=== PATIENT | female | born 1980 | race Two or more races ===

== ENCOUNTER 2017-04-18 00:35 | Emergency (ER) | payer SELFPAY ==
[2017-04-18 00:41] VITALS: RESP 20
--- NOTE | 2017-04-18 00:51 | C.PDOC ---
History Of Present Illness The patient presents to the ED for evaluation of a abscesses to her right hand and right great toe which developed over the past 4-5 days. Patient admits to injecting heroin to the area around her right great toe. Patient has been taking Amoxicillin that was given to her by her friend. She denies suicidal/ homicidal ideation and has no other complaints at this time. Time Seen by Provider: 04/18/17 00:50 Chief Complaint (Nursing): Abnormal Skin Integrity History Per: Patient History/Exam Limitations: no limitations Onset/Duration Of Symptoms: Days Current Symptoms Are (Timing): Still Present Location Of Injury: Right: Foot (abscess, cellulitis), Hand (abscess, cellulitis ) Quality Of Symptoms: Painful, Swollen, Draining Severity: Mild Pain Scale Rating Of: 4 Recent travel outside of the [place]: No Additional History Per: Patient Past Medical History Reviewed: Historical Data, Nursing Documentation, Vital Signs Vital Signs: Last Vital Signs Temp 97.9 F 04/18/17 00:37 Pulse 92 H 04/18/17 00:37 Resp 20 04/18/17 00:37 BP 128/79 04/18/17 00:37 Pulse Ox 96 04/18/17 01:49 - Medical History PMH: Anxiety Surgical History: No Surg Hx Family History: States: Unknown Family Hx - Social History Hx Alcohol Use: No Hx Substance Use: Yes - Immunization History Hx Tetanus Toxoid Vaccination: No Hx Influenza Vaccination: No Hx Pneumococcal Vaccination: No Review Of Systems Constitutional: Negative for: Fever, Chills ENT: Negative for: Throat Pain Cardiovascular: Negative for: Chest Pain, Palpitations Respiratory: Negative for: Cough, Shortness of Breath Gastrointestinal: Negative for: Nausea, Vomiting, Abdominal Pain, Diarrhea Musculoskeletal: Positive for: Hand Pain (right), Foot Pain (right) Skin: Positive for: Other (abscess to right foot and hand ). Negative for: Rash , Lesions, Jaundice, Bruising Neurological: Negative for: Weakness, Numbness Psych: Negative for: Suicidal ideation Physical Exam - Physical Exam Appears: Non-toxic, No Acute Distress Skin: Normal Color, Warm, Dry Head: Normacephalic Eye(s): bilateral: Normal Inspection Oral Mucosa: Moist Neck: Trachea Midline, Supple Chest: Symmetrical, No Deformity, No Tenderness Cardiovascular: Rhythm Regular, No Murmur Respiratory: No Rales, No Rhonchi, No Wheezing, Other (speaking in complete sentences ) Back: No CVA Tenderness Extremity: Normal ROM, Capillary Refill (less than 2 seconds ), Other (3x4cm area of abscess and cellulitis to dorsum of right hand. abscess and cellulitis to dorsum of right foot. visible track raymond ) Pulses: Left Radial: Normal, Right Radial: Normal, Left Dorsalis Pedis: Normal, Right Dorsalis Pedis: Normal Neurological/Psych: Oriented x3, Normal Speech, Normal Cognition ED Course And Treatment - Laboratory Results Result Diagrams: 04/18/17 01:33 04/18/17 01:33 O2 Sat by Pulse Oximetry: 96 (on RA ) Pulse Ox Interpretation: Normal Progress Note: Bloodwork, UA, CT Upper Extremity, CT Lower extremity ordered and reviewed. Vancomycin IVP and Zosyn IVP administered. 3 am pt does not want to be hospitalized and signed AMA form., Pt is aaox3 and competent and understands all the risks as I've explained at length including worsening condition, loss of fingers and hand, loss of toes and foot, permanent disability and . Encouraged to return. Prescriptions were given Against Medical Advice - AMA Patient Left Against Medical Advice: The patient declines admission to the hospital and wishes to leave the Emergency Department. This action is against my medical advice. This decision was made with informed refusal. The patient was told that admission to the hospital is necessary. Explanation of the reasons why were discussed. The risks of leaving were explained to the patient and include, but are not limited to, worsening of known or currently unknown conditions, permanent disability and from undiagnosed or untreated conditions. The patient has the capacity to make this informed decision and understands my explanation of the current medical problem and risks of leaving. The patient voluntarily accepts these risks and signed an AMA form documenting our conversation. The patient was given the opportunity to ask questions and reconsider. The patient was encouraged to return to the Emergency Department at any time for further care. Disposition Counseled Patient/Family Regarding: Studies Performed, Diagnosis, Need For Followup, Rx Given - Disposition Referrals: [facility] [Outside] [facility] [Outside] Disposition: AGAINST MEDICAL ADVICE Disposition Time: 00:51 Condition: GUARDED Prescriptions: Cephalexin [cephalexin] 500 mg PO QID #28 cap Sulfamethoxazole/Trimethoprim [Bactrim DS 800 mg-160 mg] 1 tab PO BID #14 tab Instructions: Abscess (ED), Cellulitis (DC) Forms: [employer] ([place]) - Clinical Impression Clinical Impression: Cellulitis and abscess of hand, Abscess of right foot - Scribe Statement The provider has reviewed the documentation as recorded by the Scribe (Mya Simon) Provider Attestation: All medical record entries made by the Scribe were at my direction and personally dictated by me. I have reviewed the chart and agree that the record accurately reflects my personal performance of the history, physical exam, medical decision making, and the department course for this patient. I have also personally directed, reviewed, and agree with the discharge instructions and disposition.
[2017-04-18] MEDS ORDERED: Piperacillin/Tazobact 3.375 GM in Sodium Chloride 100 ML IVPB STA (01:02)
[2017-04-18] MEDS ORDERED: Piperacillin/Tazobact 3.375 gm 100 ML IVPB ONE (01:14)
[2017-04-18 01:36] LABS: BASO % 0.6 % (0.0-2.0); EOS # 0.4 K/uL (0.0-0.7); EOS % 4.7 % (0.0-4.0); HEMATOCRIT 34.8 % (34.0-47.0); LYMPH # 2.7 K/uL (1.0-4.3); LYMPH % 33.3 % (20.0-40.0); MEAN CELL VOLUME 86.3 fL (81.0-99.0); MEAN CORPUSCULAR HEMOGLOBIN 30.4 pg (27.0-31.0); MEAN CORPUSCULAR HGB CONC 35.2 g/dL (33.0-37.0); MEAN PLATELET VOLUME 6.3 fL (7.2-11.7); MONO # 0.6 K/uL (0.0-0.8); MONO % 7.2 % (0.0-10.0); RED CELL DISTRIBUTION WIDTH 12.1 % (11.5-14.5)
[2017-04-18] MEDS ORDERED: Vancomycin 1 gm/NS 200 ml 1 GM/200 ML BAG IVPB STA (01:36)
[2017-04-18 01:48] LABS: VENOUS BLOOD GAS BASE EXCESS 6.6 mmol/L (0.0-2.0); VENOUS BLOOD GAS PCO2 50 mmHg (40-60); VENOUS BLOOD PH 7.42 (7.32-7.43)
[2017-04-18 01:48] LABS: ALB/GLOB RATIO 1.3 (1.0-2.1); ALKALINE PHOSPHATASE 70 U/L (38-126); ALT/SGPT 60 U/L (9-52); AST/SGOT 39 U/L (14-36); BILIRUBIN,TOTAL 0.4 mg/dL (0.2-1.3); BLOOD UREA NITROGEN 9 mg/dL (7-17); CALCIUM 8.2 mg/dl (8.6-10.4); CARBON DIOXIDE 31 mmol/L (22-30); CHLORIDE 98 mmol/L (98-107); GFR AFRICAN-AMERICAN > 60; GLUCOSE,RANDOM 127 mg/dL (65-105); POTASSIUM 3.3 mmol/L (3.6-5.2); SODIUM 136 mmol/L (132-148); TOTAL PROTEIN 6.7 g/dL (6.3-8.3)
[2017-04-18] MEDS ORDERED: Iodixanol 320 MG/ML 100 ML BOTTLE IV ONE (02:07)
[2017-04-18 02:15] LABS: RBC URINE < 1 /hpf (0-3); URINE BACTERIA RARE (<OCC); URINE BILIRUBIN NEGATIVE (NEGATIVE); URINE BLOOD NEGATIVE (NEGATIVE); URINE COLOR Yellow (YELLOW); URINE GLUCOSE (UA) NORMAL (Normal); URINE KETONE NEGATIVE (NEGATIVE); URINE LEUKOCYTE ESTERASE NEG Leu/uL (Negative); URINE PROTEIN NEGATIVE (NEGATIVE); WBC URINE 1 /hpf (0-5)
--- NOTE | 2017-04-18 03:31 | CT ---
EXAM: CT Right Upper Extremity Without Intravenous Contrast, Hand CLINICAL HISTORY: 36 years old, female; Pain and signs and symptoms; Mass or lump and swelling; Hand; Right; Additional info: Hand abscess. Hand w/iv TECHNIQUE: Axial computed tomography images of the right hand without intravenous contrast. All CT scans at this facility use one or more dose reduction techniques, viz.: automated exposure control; ma/kV adjustment per patient size (including targeted exams where dose is matched to indication; i.e. head); or iterative reconstruction technique. Coronal and sagittal reformatted images were created and reviewed. COMPARISON: No relevant prior studies available. FINDINGS: Bones/joints: No acute fracture. No dislocation. No definite cortical destruction. Soft tissues: Skin thickening. Marked soft tissue swelling along dorsum of hand. Amorphous peripherally enhancing fluid collection(s) along dorsum of hand, approximately 3.2 x 1.1 x 1.1 cm. IMPRESSION: 1. Findings compatible with cellulitis and abscess(es).
--- NOTE | 2017-04-18 03:34 | CT ---
EXAM: CT Right Lower Extremity With Intravenous Contrast, Foot CLINICAL HISTORY: 36 years old, female; Pain; Foot; Right; Additional info: Abscess doesum foot TECHNIQUE: Axial computed tomography images of the right foot with intravenous contrast. All CT scans at this facility use one or more dose reduction techniques, viz.: automated exposure control; ma/kV adjustment per patient size (including targeted exams where dose is matched to indication; i.e. head); or iterative reconstruction technique. Coronal and sagittal reformatted images were created and reviewed. CONTRAST: 100 mL of [id number] administered intravenously. COMPARISON: No relevant prior studies available. FINDINGS: Bones/joints: No acute fracture. No dislocation. No definite cortical destruction. Soft tissues: Skin thickening. Soft tissue swelling along dorsum of forefoot. 1.6 x 1.5 x 0.8 cm peripherally enhancing fluid collection along medial dorsum of forefoot, communicating with skin surface. IMPRESSION: 1. Findings compatible with cellulitis and abscess.
[2017-04-18 03:42] VITALS: BP 130/80; PULSE 90; TEMP 98; O2SAT 98
== END 2017-04-18 03:40 | disposition left against medical advice (07) ==
LOC: C.ER 00:35
DX: L02.511 Cutaneous abscess of right hand (principal); L02.611 Cutaneous abscess of right foot
CPT/HCPCS: 36415; 73200; 73701; 80053; 81001; 82803; 84703; 85025; 87040; 96365; 96366; 96367; 99284; J2543; J3370; J7050; Q9967

== ENCOUNTER 2017-11-06 11:53 | Observation (INO) | payer SELFPAY ==
[2017-11-06 12:07] VITALS: BMI 22.6
[2017-11-06] MEDS ORDERED: Sodium Chloride 0.9% 1,000 ML IV STA (12:29)
[2017-11-06] MEDS ORDERED: Piperacillin/Tazobact 3.375 gm 100 ML IV STA (12:33)
[2017-11-06] MEDS ORDERED: Vancomycin 1 GM 1 GM/250 ML BAG IV STA (12:33)
[2017-11-06 12:50] LABS: VENOUS BLOOD GAS BASE EXCESS 4.6 mmol/L (0.0-2.0); VENOUS BLOOD GAS PCO2 56 mmHg (40-60); VENOUS BLOOD GAS PO2 40 mm/Hg (30-55); VENOUS BLOOD PH 7.36 (7.32-7.43)
[2017-11-06 12:53] LABS: BASO % 0.6 % (0.0-2.0); EOS # 0.1 K/uL (0.0-0.7); EOS % 1.5 % (0.0-4.0); HEMOGLOBIN 12.3 g/dL (11.0-16.0); LYMPH # 2.2 K/uL (1.0-4.3); LYMPH % 26.9 % (20.0-40.0); MEAN CELL VOLUME 85.6 fL (81.0-99.0); MEAN CORPUSCULAR HEMOGLOBIN 29.8 pg (27.0-31.0); MEAN CORPUSCULAR HGB CONC 34.8 g/dL (33.0-37.0); MEAN PLATELET VOLUME 6.3 fL (7.2-11.7); MONO # 0.7 K/uL (0.0-0.8); MONO % 8.6 % (0.0-10.0); NEUT % 62.4 % (50.0-75.0); NRBC % 0.1 % (0.0-2.0); RBC 4.14 Mil/uL (3.80-5.20); RED CELL DISTRIBUTION WIDTH 12.4 % (11.5-14.5)
[2017-11-06] MEDS ORDERED: Vancomycin 1 gm/NS 200 ml 1 GM/200 ML BAG IVPB STA (12:57)
[2017-11-06] MEDS ORDERED: Sodium Chloride 0.9% 1,000 ML ONE (13:00)
[2017-11-06] MEDS ORDERED: Piperacillin/Tazobact 3.375 gm 100 ML IVPB ONE (13:00)
[2017-11-06 13:06] LABS: ALB/GLOB RATIO 1.3 (1.0-2.1); ALT/SGPT 50 U/L (9-52); AST/SGOT 39 U/L (14-36); BLOOD UREA NITROGEN 10 mg/dL (7-17); GFR AFRICAN-AMERICAN > 60; GFR NON-AFRICAN AMERICAN > 60
[2017-11-06 13:14] LABS: INR 1.1; PROTHROMBIN TIME 12.5 SECONDS (9.7-12.2)
--- NOTE | 2017-11-06 14:11 | C.PDOC ---
History Of Present Illness 37-year-old female, presents to the emergency department with complains of left breast infection x4 days. Patient admits being IVDA. Denies nausea/vomiting, fever, chills, chest pain, or any other associated symptoms. No other complaints at this time Time Seen by Provider: 11/06/17 12:15 Chief Complaint (Nursing): Abnormal Skin Integrity History Per: Patient History/Exam Limitations: no limitations Current Symptoms Are (Timing): Still Present Past Medical History Reviewed: Historical Data, Nursing Documentation, Vital Signs Vital Signs: Last Vital Signs Temp 98.6 F 11/06/17 12:01 Pulse 56 L 11/06/17 18:57 Resp 16 11/06/17 18:57 BP 94/61 L 11/06/17 18:57 Pulse Ox 100 11/06/17 18:57 - Medical History PMH: Anxiety Family History: States: No Known Family Hx - Social History Hx Alcohol Use: No Hx Substance Use: Yes - Immunization History Hx Tetanus Toxoid Vaccination: No Hx Influenza Vaccination: No Hx Pneumococcal Vaccination: No Review Of Systems Constitutional: Negative for: Fever, Chills Cardiovascular: Positive for: Other (breast pain). Negative for: Edema Respiratory: Negative for: Shortness of Breath Gastrointestinal: Negative for: Nausea, Vomiting Musculoskeletal: Negative for: Back Pain Skin: Negative for: Rash Neurological: Negative for: Weakness, Numbness, Headache, Dizziness Physical Exam - Physical Exam Appears: Non-toxic, No Acute Distress, Other (Drowsy, appears intoxicated. ) Skin: Normal Color, Warm, Dry, No Rash Head: Atraumatic Eye(s): bilateral: Normal Inspection Nose: Normal Oral Mucosa: Moist Lips: Normal Appearing Neck: Normal ROM Chest: Symmetrical, Other (Left breast, swelling, erythema, warmth. Inner part of breast with 3cm black ulceration (+)yellow, foul smelling discharge. ) Cardiovascular: Rhythm Regular, No Murmur Respiratory: Normal Breath Sounds, No Accessory Muscle Use Extremity: Normal ROM, No Deformity, No Swelling Neurological/Psych: Oriented x3, Normal Speech ED Course And Treatment - Laboratory Results Result Diagrams: 11/06/17 12:48 11/06/17 12:48 O2 Sat by Pulse Oximetry: 100 (RA) Pulse Ox Interpretation: Normal - Other Rad CXR X-Ray: Viewed By Me, Read By Radiologist Interpretation: Accession No. : [id number]. Patient Name / ID : JEREMI BRAVO / [id number]. Exam Date : 11/06/2017 17:51:41 ( Approved ). Study Comment : Sex / Age : F / 37Y. Creator : Kelsie Bull MD. Dictator : Kelsie Bull MD. Backup Administrator : Hotel Administrative Assistant : Kelsie Bull MD. Approver2 : Report Date : 11/06/2017 18:07:44. My Comment : . HISTORY: breast cellulitis. COMPARISON: No prior. FINDINGS: LUNGS: The lungs are well inflated and clear. PLEURA: No significant pleural effusion identified, no pneumothorax apparent. CARDIOVASCULAR: Normal. OSSEOUS STRUCTURES: No significant abnormalities. VISUALIZED UPPER ABDOMEN: Normal. OTHER FINDINGS: None. IMPRESSION: No active pulmonary disease. - CT Scan/US CT chest Other Rad Studies (CT/US): Read By Radiologist, Radiology Report Reviewed CT/US Interpretation: Accession No. : [id number]. Patient Name / ID : JEREMI BRAVO / [id number]. Exam Date : 11/06/2017 14:48:41 ( Approved ). Study Comment : Sex / Age : F / 37Y. Creator : Kelsie Bull MD. Dictator : Kelsie Bull MD. Backup Administrator : Hotel Administrative Assistant : Kelsie Bull MD. Approver2 : Report Date : 11/06/2017 15:33:50. My Comment : . PROCEDURE: CT Chest with contrast. HISTORY: evaluation for the left breast infection, IVDA. COMPARISON: None. TECHNIQUE: Contiguous axial images were obtained through the chest with intravenous contrast enhancement. Sagittal and coronal reconstructions were performed. IV contrast: 100 mL Visipaque. Radiation dose (DLP): 366.09 mGy-cm. This CT exam was performed using one or more of the following dose reduction techniques: Automated exposure control, adjustment of the mA and/or kV according to patient size, and/or use of iterative reconstruction technique. FINDINGS: There is diffuse skin thickening and abnormal subcutaneous soft tissue in the left breast. There is a 1.7 x 1.5 cm low-attenuation area in the subcutaneous inferior medial breast. LUNGS: The lungs are well inflated. There is a 6 mm subpleural nodule in the superior segment of the left lower lobe (series 3, image 55). There is mild paraseptal emphysema in the posterior lower lobes. No focal consolidation. There are no endobronchial lesions. MEDIASTINUM: The aorta is not dilated. The heart is normal in size. No pericardial effusion. No pathologic mediastinal or hilar lymphadenopathy. There are enlarged bilateral axillary lymph nodes. PLEURA: No pleural fluid. No pneumothorax. BONES: No fracture. No destructive lesion. Within normal limits for the patient's age. UPPER ABDOMEN: Grossly unremarkable. OTHER FINDINGS: None. IMPRESSION: 1. Findings are most compatible with left breast cellulitis with presumable small subcutaneous fluid in the inferomedial breast. No large abscess or drainable fluid collection. 2. Bilateral axillary lymphadenopathy which may be reactive or infectious in etiology. 3. 6 mm subpleural nodule in the superior segment of the left lower lobe a follow-up CT scan 6-12 months interval is recommended to assess stability. Progress Note: vice president quality evaluated pt, requests CT chest with IV contrast. After CT, resident states as per Dr Coley, pt does not need to be admitted to surgery, admission to medical service for observation and IV abx recommended. Case discussed with Dr Huizar, who states will admit pt. Disposition - Disposition Disposition: HOSPITALIZED Disposition Time: 17:40 Condition: FAIR - Clinical Impression Clinical Impression: Cellulitis of breast - Scribe Statement The provider has reviewed the documentation as recorded by the Scribe (Ana Ahuja) All medical record entries made by the Scribe were at my direction and personally dictated by me. I have reviewed the chart and agree that the record accurately reflects my personal performance of the history, physical exam, medical decision making, and the department course for this patient. I have also personally directed, reviewed, and agree with the discharge instructions and disposition. Decision To Admit - Pt Status Changed To: Hospital Disposition Of: Observation - . Bed Request Type: Regular Admitting Physician: Sid Huizar Patient Diagnosis: Cellulitis of breast
[2017-11-06] MEDS ORDERED: Iodixanol 320 MG/ML 100 ML BOTTLE IV ONE (14:29)
--- NOTE | 2017-11-06 15:36 | CT ---
PROCEDURE: CT Chest with contrast HISTORY: evaluation for the left breast infection, IVDA COMPARISON: None. TECHNIQUE: Contiguous axial images were obtained through the chest with intravenous contrast enhancement. Sagittal and coronal reconstructions were performed. IV contrast: 100 mL Visipaque Radiation dose (DLP): 366.09 mGy-cm. This CT exam was performed using one or more of the following dose reduction techniques: Automated exposure control, adjustment of the mA and/or kV according to patient size, and/or use of iterative reconstruction technique. FINDINGS: There is diffuse skin thickening and abnormal subcutaneous soft tissue in the left breast. There is a 1.7 x 1.5 cm low-attenuation area in the subcutaneous inferior medial breast. LUNGS: The lungs are well inflated. There is a 6 mm subpleural nodule in the superior segment of the left lower lobe (series 3, image 55). There is mild paraseptal emphysema in the posterior lower lobes. No focal consolidation. There are no endobronchial lesions. MEDIASTINUM: The aorta is not dilated. The heart is normal in size. No pericardial effusion. No pathologic mediastinal or hilar lymphadenopathy. There are enlarged bilateral axillary lymph nodes. PLEURA: No pleural fluid. No pneumothorax. BONES: No fracture. No destructive lesion. Within normal limits for the patient's age. UPPER ABDOMEN: Grossly unremarkable. OTHER FINDINGS: None. IMPRESSION: 1. Findings are most compatible with left breast cellulitis with presumable small subcutaneous fluid in the inferomedial breast. No large abscess or drainable fluid collection. 2. Bilateral axillary lymphadenopathy which may be reactive or infectious in etiology. 3. 6 mm subpleural nodule in the superior segment of the left lower lobe a follow-up CT scan 6-12 months interval is recommended to assess stability.
--- NOTE | 2017-11-06 16:11 | CP.PCM.CON ---
History of Present Illness - History of Present Illness History of Present Illness: General Surgery Consult Note for Dr. Coley This is a 37F heroin addict currently under the influence of heroin. She reports previous abscesses on her arm. She admits to injecting in her breast last week. She reports that 4 days ago she began having this lesion on her breast. She denies any fevers chills or chest pain. PMH: Denies PSH: Abscess I&D ALL: Denies Social: Admits to using heroin today Review of Systems - Review of Systems Systems not reviewed;Unavailable: Altered Mental Status Past Patient History - Past Social History Smoking Status: Light Smoker < 10 Cigarettes Daily - PSYCHIATRIC Hx Anxiety: Yes Hx Substance Use: Yes - ANESTHESIA Hx Anesthesia: No Meds Allergies/Adverse Reactions: Allergies Allergy/AdvReac Type Severity Reaction Status Date / Time No Known Allergies Allergy Unverified 04/18/17 00:43 Physical Exam - Constitutional Additional comments: Lethargic, but arousable - Head Exam Head Exam: ATRAUMATIC - ENT Exam Additional comments: poor dentition - Respiratory Exam Respiratory Exam: NORMAL BREATHING PATTERN Additional comments: Left breast 1.5 cm ciruclar eschar surrounded by erythema - Cardiovascular Exam Cardiovascular Exam: +S1, +S2 - GI/Abdominal Exam GI & Abdominal Exam: Soft Results - Vital Signs Recent Vital Signs: Last Vital Signs Temp 98.6 F 11/06/17 12:01 Pulse 80 11/06/17 13:15 Resp 18 11/06/17 13:15 BP 93/57 L 11/06/17 13:15 Pulse Ox 100 11/06/17 16:07 - Labs Result Diagrams: 11/06/17 12:48 11/06/17 12:48 Labs: Laboratory Results - last 24 hr 11/06/17 11/06/17 11/06/17 12:46 12:48 12:48 WBC 8.0 RBC 4.14 Hgb 12.3 Hct 35.4 MCV 85.6 MCH 29.8 MCHC 34.8 RDW 12.4 Plt Count 273 MPV 6.3 L Neut % (Auto) 62.4 Lymph % (Auto) 26.9 [place] % (Auto) 8.6 Eos % (Auto) 1.5 Baso % (Auto) 0.6 Neut # (Auto) 5.0 Lymph # (Auto) 2.2 [place] # (Auto) 0.7 Eos # (Auto) 0.1 Baso # (Auto) 0.0 PT INR APTT pO2 40 VBG pH 7.36 VBG pCO2 56 VBG HCO3 27.8 VBG Total CO2 33.3 H VBG O2 Sat (Calc) 80.6 H VBG Base Excess 4.6 H VBG Potassium 3.2 L Sodium 141.0 142 Chloride 106.0 103 Glucose 124 H Lactate 1.3 Potassium 3.5 L Carbon Dioxide 28 Anion Gap 15 BUN 10 Creatinine 0.6 L Est GFR ( Amer) > 60 Est GFR (Non-Af Amer) > 60 Random Glucose 129 H Lactic Acid Calcium 9.0 Phosphorus 4.6 H Magnesium 2.1 Total Bilirubin 0.8 AST 39 H ALT 50 Alkaline Phosphatase 80 Total Protein 7.3 Albumin 4.0 Globulin 3.2 Albumin/Globulin Ratio 1.3 Venous Blood Potassium 3.2 L Alcohol, Quantitative < 10 11/06/17 11/06/17 12:48 12:48 WBC RBC Hgb Hct MCV MCH MCHC RDW Plt Count MPV Neut % (Auto) Lymph % (Auto) [place] % (Auto) Eos % (Auto) Baso % (Auto) Neut # (Auto) Lymph # (Auto) [place] # (Auto) Eos # (Auto) Baso # (Auto) PT 12.5 H INR 1.1 APTT 38 H pO2 VBG pH VBG pCO2 VBG HCO3 VBG Total CO2 VBG O2 Sat (Calc) VBG Base Excess VBG Potassium Sodium Chloride Glucose Lactate Potassium Carbon Dioxide Anion Gap BUN Creatinine Est GFR ( Amer) Est GFR (Non-Af Amer) Random Glucose Lactic Acid 1.2 Calcium Phosphorus Magnesium Total Bilirubin AST ALT Alkaline Phosphatase Total Protein Albumin Globulin Albumin/Globulin Ratio Venous Blood Potassium Alcohol, Quantitative - Imaging and Cardiology CT scan - chest Status: Image reviewed by me Assessment & Plan - Assessment and Plan (Free Text) Assessment: 37F with right brest cellulitis and overlying eschar When sober if consenting will do bedside debridment, otherwise pt is clear for DC home on abx. CT reports no drainable collection.
--- NOTE | 2017-11-06 17:35 | CP.PCM.HP ---
<BelkisYaneth L. - Last Filed: 11/06/17 17:46> History of Present Illness - History of Present Illness History of Present Illness: CC: left breast wound HPI: Patient is a 37 year old female with PMHx of crack cocaine and heroin abuse who presents to the ED for a necrotic wound on her left breast. Patient said she injected heroin into that breast about a week ago and then the wound developed and has gradually become worse. Patient is under the influence of heroin during the interview and keeps falling asleep. Patient admits to pain in the left breast especially to the touch. Patient denies any fevers, chest pain, abdominal pain. Patient admits to injecting 5 bags of heroin this morning. Allergies: NKDA PMHx: crack cocaine and heroin abuse Psurg: none Famhx: unknown Social: injects 5 bags of heroin daily for many years (uses all parts of body including neck veins), crack cocaine daily, denies alcohol, smokes 1pack of cigarettes per day for 20 years, homeless No home medications Present on Admission - Present on Admission Any Indicators Present on Admission: No History of DVT/PE: No History of Uncontrolled Diabetes: No Urinary Catheter: No Decubitus Ulcer Present: No Review of Systems - Review of Systems Systems not reviewed;Unavailable: Intoxicated - Constitutional Constitutional: absent: Chills - Breasts Breasts: Pain, Skin Changes (wound ) - Cardiovascular Cardiovascular: absent: Chest Pain - Gastrointestinal Gastrointestinal: absent: Abdominal Pain, Constipation, Diarrhea, Nausea, Vomiting - Integumentary Integumentary: Skin Pain, Sores, Wounds Past Patient History - Past Social History Smoking Status: Light Smoker < 10 Cigarettes Daily - PSYCHIATRIC Hx Anxiety: Yes Hx Substance Use: Yes - ANESTHESIA Hx Anesthesia: No Meds Allergies/Adverse Reactions: Allergies Allergy/AdvReac Type Severity Reaction Status Date / Time No Known Allergies Allergy Unverified 04/18/17 00:43 Physical Exam - Constitutional Appears: Non-toxic, Unkempt Additional comments: lethargic - Head Exam Head Exam: ATRAUMATIC, NORMAL INSPECTION, NORMOCEPHALIC - Eye Exam Additional comments: pinpoint pupils - ENT Exam ENT Exam: Mucous Membranes Dry - Neck Exam Neck exam: Positive for: Full Rom, Normal Inspection. Negative for: Tenderness , Thyromegaly - Respiratory Exam Respiratory Exam: Clear to Auscultation Bilateral, NORMAL BREATHING PATTERN - Cardiovascular Exam Cardiovascular Exam: Bradycardia, REGULAR RHYTHM, +S1, +S2 - GI/Abdominal Exam GI & Abdominal Exam: Normal Bowel Sounds, Soft. absent: Tenderness - Extremities Exam Extremities exam: Positive for: normal inspection Additional comments: track raymond from heroin injections - Neurological Exam Neurological exam: Alert - Psychiatric Exam Psychiatric exam: Flat Affect - Skin Skin Exam: Intact, Warm Additional comments: 2cm black eschar on left medial aspect of breast with surrounding edema and erythema Results - Vital Signs Recent Vital Signs: Last Vital Signs Temp 98.6 F 11/06/17 12:01 Pulse 80 11/06/17 13:15 Resp 18 11/06/17 13:15 BP 93/57 L 11/06/17 13:15 Pulse Ox 100 11/06/17 16:07 - Labs Result Diagrams: 11/06/17 12:48 11/06/17 12:48 Labs: Laboratory Results - last 24 hr 11/06/17 11/06/17 11/06/17 12:46 12:48 12:48 WBC 8.0 RBC 4.14 Hgb 12.3 Hct 35.4 MCV 85.6 MCH 29.8 MCHC 34.8 RDW 12.4 Plt Count 273 MPV 6.3 L Neut % (Auto) 62.4 Lymph % (Auto) 26.9 [place] % (Auto) 8.6 Eos % (Auto) 1.5 Baso % (Auto) 0.6 Neut # (Auto) 5.0 Lymph # (Auto) 2.2 [place] # (Auto) 0.7 Eos # (Auto) 0.1 Baso # (Auto) 0.0 PT INR APTT pO2 40 VBG pH 7.36 VBG pCO2 56 VBG HCO3 27.8 VBG Total CO2 33.3 H VBG O2 Sat (Calc) 80.6 H VBG Base Excess 4.6 H VBG Potassium 3.2 L Sodium 141.0 142 Chloride 106.0 103 Glucose 124 H Lactate 1.3 Potassium 3.5 L Carbon Dioxide 28 Anion Gap 15 BUN 10 Creatinine 0.6 L Est GFR ( Amer) > 60 Est GFR (Non-Af Amer) > 60 Random Glucose 129 H Lactic Acid Calcium 9.0 Phosphorus 4.6 H Magnesium 2.1 Total Bilirubin 0.8 AST 39 H ALT 50 Alkaline Phosphatase 80 Total Protein 7.3 Albumin 4.0 Globulin 3.2 Albumin/Globulin Ratio 1.3 Venous Blood Potassium 3.2 L Alcohol, Quantitative < 10 11/06/17 11/06/17 12:48 12:48 WBC RBC Hgb Hct MCV MCH MCHC RDW Plt Count MPV Neut % (Auto) Lymph % (Auto) [place] % (Auto) Eos % (Auto) Baso % (Auto) Neut # (Auto) Lymph # (Auto) [place] # (Auto) Eos # (Auto) Baso # (Auto) PT 12.5 H INR 1.1 APTT 38 H pO2 VBG pH VBG pCO2 VBG HCO3 VBG Total CO2 VBG O2 Sat (Calc) VBG Base Excess VBG Potassium Sodium Chloride Glucose Lactate Potassium Carbon Dioxide Anion Gap BUN Creatinine Est GFR ( Amer) Est GFR (Non-Af Amer) Random Glucose Lactic Acid 1.2 Calcium Phosphorus Magnesium Total Bilirubin AST ALT Alkaline Phosphatase Total Protein Albumin Globulin Albumin/Globulin Ratio Venous Blood Potassium Alcohol, Quantitative Assessment & Plan - Assessment and Plan (Free Text) Assessment: Left Breast Cellulitis and Eschar Zosyn 3.375 q6h Vanco 1g daily * first dose of Zosyn and Vanco given in ED Surgery consulted, Dr. Coley, help appreciated NPO Hypotension 2/2 heroin NS at 150cc/hr Polysubstance Abuse fall precautions aspiration precautions seizure precautions f/u UDS Prophylaxis SCDs <Sid Huizar H - Last Filed: 11/07/17 07:41> Results - Vital Signs Recent Vital Signs: Last Vital Signs Temp 98.1 F 11/07/17 00:00 Pulse 72 11/07/17 00:00 Resp 20 11/07/17 00:00 BP 99/58 L 11/07/17 00:00 Pulse Ox 97 11/07/17 00:00 - Labs Result Diagrams: 11/06/17 12:48 11/06/17 12:48 Labs: Laboratory Results - last 24 hr 11/06/17 11/06/17 11/06/17 12:46 12:48 12:48 WBC 8.0 RBC 4.14 Hgb 12.3 Hct 35.4 MCV 85.6 MCH 29.8 MCHC 34.8 RDW 12.4 Plt Count 273 MPV 6.3 L Neut % (Auto) 62.4 Lymph % (Auto) 26.9 [place] % (Auto) 8.6 Eos % (Auto) 1.5 Baso % (Auto) 0.6 Neut # (Auto) 5.0 Lymph # (Auto) 2.2 [place] # (Auto) 0.7 Eos # (Auto) 0.1 Baso # (Auto) 0.0 PT INR APTT pO2 40 VBG pH 7.36 VBG pCO2 56 VBG HCO3 27.8 VBG Total CO2 33.3 H VBG O2 Sat (Calc) 80.6 H VBG Base Excess 4.6 H VBG Potassium 3.2 L Sodium 141.0 142 Chloride 106.0 103 Glucose 124 H Lactate 1.3 Potassium 3.5 L Carbon Dioxide 28 Anion Gap 15 BUN 10 Creatinine 0.6 L Est GFR ( Amer) > 60 Est GFR (Non-Af Amer) > 60 Random Glucose 129 H Lactic Acid Calcium 9.0 Phosphorus 4.6 H Magnesium 2.1 Total Bilirubin 0.8 AST 39 H ALT 50 Alkaline Phosphatase 80 Total Protein 7.3 Albumin 4.0 Globulin 3.2 Albumin/Globulin Ratio 1.3 Venous Blood Potassium 3.2 L Alcohol, Quantitative < 10 11/06/17 11/06/17 12:48 12:48 WBC RBC Hgb Hct MCV MCH MCHC RDW Plt Count MPV Neut % (Auto) Lymph % (Auto) [place] % (Auto) Eos % (Auto) Baso % (Auto) Neut # (Auto) Lymph # (Auto) [place] # (Auto) Eos # (Auto) Baso # (Auto) PT 12.5 H INR 1.1 APTT 38 H pO2 VBG pH VBG pCO2 VBG HCO3 VBG Total CO2 VBG O2 Sat (Calc) VBG Base Excess VBG Potassium Sodium Chloride Glucose Lactate Potassium Carbon Dioxide Anion Gap BUN Creatinine Est GFR ( Amer) Est GFR (Non-Af Amer) Random Glucose Lactic Acid 1.2 Calcium Phosphorus Magnesium Total Bilirubin AST ALT Alkaline Phosphatase Total Protein Albumin Globulin Albumin/Globulin Ratio Venous Blood Potassium Alcohol, Quantitative Attending/Attestation - Attestation I have personally seen and examined this patient.: Yes I have fully participated in the care of the patient.: Yes I have reviewed all pertinent clinical information: Yes Notes (Text): 11/07/17 07:37 Medical attending: Patient was seen and examined by me. Agree with the above note by the resident The patient was seen in the ER yesterday afternoon at about 6 PM with the medical insurance coding specialist. She needed abx and possibly bedside debridment however at that time she still appeared to be intoxicated/high probably from heroine There were obvious signs of injection raymond in arms and I suspect she probably injected at the 3 o'clock position of the right breast. It was tender to palpation and there was a blacken almost eschar like appearance that was about 1 x 2 inch in dimension. Surrounding this was erythema. Unfortunately I was later informed the patient AMA sometime during the night/ director export Sid Huizar
[2017-11-06] MEDS ORDERED: Piperacill/Tazo 3.375gm in Dex 3.375 GM/50 ML BAG IVPB SCH (17:45)
[2017-11-06] MEDS ORDERED: Piperacillin/Tazobact 3.375 GM in Sodium Chloride 100 ML IVPB SCH (17:45)
[2017-11-06] MEDS ORDERED: Sodium Chloride 0.9% 1,000 ML IV SCH (18:00)
--- NOTE | 2017-11-06 18:09 | RAD ---
HISTORY: breast cellulitis COMPARISON: No prior. FINDINGS: LUNGS: The lungs are well inflated and clear. PLEURA: No significant pleural effusion identified, no pneumothorax apparent. CARDIOVASCULAR: Normal. OSSEOUS STRUCTURES: No significant abnormalities. VISUALIZED UPPER ABDOMEN: Normal. OTHER FINDINGS: None. IMPRESSION: No active pulmonary disease.
[2017-11-06] MEDS ORDERED: Sodium Chloride 0.9% 1,000 ML IV ONE (18:11)
[2017-11-06 19:42] VITALS: RESP 20
[2017-11-06] MEDS: Piperacill/Tazo 3.375gm in Dex 3.375 GM/50 ML BAG IVPB SCH (21:26)
[2017-11-07] MEDS: Piperacill/Tazo 3.375gm in Dex 3.375 GM/50 ML BAG IVPB SCH (00:28)
--- NOTE | 2017-11-07 01:15 | CP.PCM.DIS ---
Provider - Provider Date of Admission: 11/06/17 17:40 Attending physician: Sid Huizar DO Time Spent in preparation of Discharge (in minutes): 30 Hospital Course - Lab Results Lab Results: Micro Results 11/06/17 13:12 Breast - Left Gram Stain - Final Most Recent Lab Values WBC 8.0 K/uL (4.8-10.8) 11/06/17 12:48 RBC 4.14 Mil/uL (3.80-5.20) 11/06/17 12:48 Hgb 12.3 g/dL (11.0-16.0) 11/06/17 12:48 Hct 35.4 % (34.0-47.0) 11/06/17 12:48 MCV 85.6 fL (81.0-99.0) 11/06/17 12:48 MCH 29.8 pg (27.0-31.0) 11/06/17 12:48 MCHC 34.8 g/dL (33.0-37.0) 11/06/17 12:48 RDW 12.4 % (11.5-14.5) 11/06/17 12:48 Plt Count 273 K/uL (130-400) 11/06/17 12:48 MPV 6.3 fL (7.2-11.7) L 11/06/17 12:48 Neut % (Auto) 62.4 % (50.0-75.0) 11/06/17 12:48 Lymph % (Auto) 26.9 % (20.0-40.0) 11/06/17 12:48 [place] % (Auto) 8.6 % (0.0-10.0) 11/06/17 12:48 Eos % (Auto) 1.5 % (0.0-4.0) 11/06/17 12:48 Baso % (Auto) 0.6 % (0.0-2.0) 11/06/17 12:48 Neut # (Auto) 5.0 K/uL (1.8-7.0) 11/06/17 12:48 Lymph # (Auto) 2.2 K/uL (1.0-4.3) 11/06/17 12:48 [place] # (Auto) 0.7 K/uL (0.0-0.8) 11/06/17 12:48 Eos # (Auto) 0.1 K/uL (0.0-0.7) 11/06/17 12:48 Baso # (Auto) 0.0 K/uL (0.0-0.2) 11/06/17 12:48 PT 12.5 SECONDS (9.7-12.2) H 11/06/17 12:48 INR 1.1 11/06/17 12:48 APTT 38 SECONDS (21-34) H 11/06/17 12:48 pO2 40 mm/Hg (30-55) 11/06/17 12:46 VBG pH 7.36 (7.32-7.43) 11/06/17 12:46 VBG pCO2 56 mmHg (40-60) 11/06/17 12:46 VBG HCO3 27.8 mmol/L 11/06/17 12:46 VBG Total CO2 33.3 mmol/L (22-28) H 11/06/17 12:46 VBG O2 Sat (Calc) 80.6 % (40-65) H 11/06/17 12:46 VBG Base Excess 4.6 mmol/L (0.0-2.0) H 11/06/17 12:46 VBG Potassium 3.2 mmol/L (3.6-5.2) L 11/06/17 12:46 Sodium 141.0 mmol/l (132-148) 11/06/17 12:46 Chloride 106.0 mmol/L (98-107) 11/06/17 12:46 Glucose 124 mg/dl (65-105) H 11/06/17 12:46 Lactate 1.3 mmol/L (0.7-2.1) 11/06/17 12:46 Sodium 142 mmol/L (132-148) 11/06/17 12:48 Potassium 3.5 mmol/L (3.6-5.2) L 11/06/17 12:48 Chloride 103 mmol/L (98-107) 11/06/17 12:48 Carbon Dioxide 28 mmol/L (22-30) 11/06/17 12:48 Anion Gap 15 (10-20) 11/06/17 12:48 BUN 10 mg/dL (7-17) 11/06/17 12:48 Creatinine 0.6 mg/dL (0.7-1.2) L 11/06/17 12:48 Est GFR ( Amer) > 60 11/06/17 12:48 Est GFR (Non-Af Amer) > 60 11/06/17 12:48 Random Glucose 129 mg/dL (65-105) H 11/06/17 12:48 Lactic Acid 1.2 mmol/L (0.7-2.1) 11/06/17 12:48 Calcium 9.0 mg/dl (8.6-10.4) 11/06/17 12:48 Phosphorus 4.6 mg/dL (2.5-4.5) H 11/06/17 12:48 Magnesium 2.1 mg/dL (1.6-2.3) 11/06/17 12:48 Total Bilirubin 0.8 mg/dL (0.2-1.3) 11/06/17 12:48 AST 39 U/L (14-36) H 11/06/17 12:48 ALT 50 U/L (9-52) 11/06/17 12:48 Alkaline Phosphatase 80 U/L (38-126) 11/06/17 12:48 Total Protein 7.3 g/dL (6.3-8.3) 11/06/17 12:48 Albumin 4.0 g/dL (3.5-5.0) 11/06/17 12:48 Globulin 3.2 gm/dL (2.2-3.9) 11/06/17 12:48 Albumin/Globulin Ratio 1.3 (1.0-2.1) 11/06/17 12:48 Venous Blood Potassium 3.2 mmol/L (3.6-5.2) L 11/06/17 12:46 Alcohol, Quantitative < 10 mg/dl (0-10) 11/06/17 12:48 - Hospital Course Hospital Course: HPI: Patient is a 37 year old female with PMHx of crack cocaine and heroin abuse who presents to the ED for a necrotic wound on her left breast. Patient said she injected heroin into that breast about a week ago and then the wound developed and has gradually become worse. Patient is under the influence of heroin during the interview and keeps falling asleep. Patient admits to pain in the left breast especially to the touch. Patient denies any fevers, chest pain, abdominal pain. Patient admits to injecting 5 bags of heroin this morning. Hospital Course: Patient was placed on antibiotics Zosyn and Vancomycin. General Surgery Dr. Coley was consulted for the left breast cellulitis and eschar. Patient was alert and oriented x3 and stated she wanted to sign out against medical advice. This is a summary of the patient's hospital course. Refer to full EMR for complete record. Discharge Exam - Head Exam Head Exam: ATRAUMATIC, NORMAL INSPECTION, NORMOCEPHALIC Discharge Plan - Follow Up Plan Condition: FAIR Disposition: AGAINST MEDICAL ADVICE
[2017-11-07 01:24] VITALS: BP 99/58; PULSE 72; TEMP 98.1; O2SAT 97
[2017-11-07] MEDS ORDERED: Pneumococcal 23-Valent Vaccine IM ONE (10:00)
--- NOTE | 2017-11-07 17:14 | CARD ---
APPROVED REPORT EKG Measurement Heart [id number] <Conclusion> Sinus bradycardia Prolonged QT Abnormal ECG
[2017-11-07] MEDS ORDERED: Vancomycin 1 gm/NS 200 ml 1 GM/200 ML BAG IVPB SCH (18:00)
== END 2017-11-07 01:30 | disposition left against medical advice (07) ==
LOC: C.ER 11:53 → C.9E 17:40 → C.3T 18:47
PROVIDERS: ADMIT Hospitalist; ATTEND Hospitalist
DX: N61.0 Mastitis without abscess (principal); F11.20 Opioid dependence, uncomplicated
CPT/HCPCS: 71045; 71260; 80053; 82803; 83605; 83735; 84100; 85025; 85610; 85730; 87040; 87070; 87086; 87149; 87181; 87205; 93005; 96361; 96365; 96366; 96367; 99285; G0378; G0480; J2543; J3370; J3480; J7030; Q9967